=== PATIENT | male | born 1980 | race Caucasian/White ===

== ENCOUNTER 2023-05-03 09:53 | Emergency (ER) | payer BC, SELFPAY ==
--- NOTE | ~2023-05-03 | XR_ITS ---
EXAMINATION: XR chest 2V DATE: 05/03/2023 10:22 INDICATION: Cough TECHNIQUE: PA and lateral views of the chest are obtained. COMPARISON: None available FINDINGS: The lungs are free of acute opacities. No pleural effusion or pneumothorax. The cardiomedia stinal silhouette is normal. The visualized bones and soft tissues are unremarkable. IMPRESSION: 1. No acute cardiopulmonary abnormality. Reviewed, dictated and finalized at location B. OR NET SOFTWARE DEVELOPER
[2023-05-03 10:02] VITALS: BP 125/88; PULSE 101; RESP 20; TEMP 36.9; O2SAT 95
--- NOTE | 2023-05-03 10:08 | ED.URI ---
HPI - URI/Sore Throat General Chief Complaint: Upper Respiratory Infection Stated Complaint: Chest Congestion/Cough/Rib Pain Source: patient and RN notes reviewed Mode of arrival: ambulatory Limitations: no limitations History of Present Illness HPI Narrative: 43 y/o male presented for c/o nonproductive cough x2 days.Reports associated bilateral rib pain with coughing, headache, chills, and sore throat. Taking mucinex. Denies cp, palpitations, sob, wheezing, n/v/d. smokes 2ppd. MD elicited complaint: cough Related Data Allergies Allergy/AdvReac Type Severity Reaction Status Date / Time No Known Allergies Allergy Verified 05/03/23 10:09 Review of Systems Review of Systems: CONSTITUTIONAL: Endorses malaise, chills, sweats, fever EYES: Denies visual changes, redness, or discharge ENT: Reports rhinorrhea, congestion, sore throat CARDIOVASCULAR: Denies chest pain, palpitations, edema RESPIRATORY: Reports cough, Denies dyspnea or wheezing GASTROINTESTINAL: Denies abdominal pain, nausea, vomiting, diarrhea SKIN: Denies rash or itching MUSCULOSKELETAL: Endorses myalgia [facility] Social History Social History (Updated 05/03/23 @ 10:17 by Nina Poe, CHEMICAL ENGINEERING PROFESSOR) Smoking packs per day: 2 Smoking cigarettes per day: 40.0 Smoking status: Current every day smoker Tobacco type: cigarettes Exam Narrative: GENERAL: mildly Ill-appearing, nontoxic no acute distress. EYES: PERRLA, conjunctivae clear ENT: Mucous membranes moist. TM pearly aguirre with dull light reflex bilaterally; no tragal tenderness. Oropharynx erythematous without lesions or exudate, no drooling, no hoarseness, no trismus, uvula midline. No tripod positioning, muffled voice, soft palate or pharyngeal wall bulging CHEST: Clear to auscultation, breath sounds equal. No wheezing, rhonchi, rales, or stridor. No respiratory distress, speaks in full sentences. 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 HEART: Regular rate and rhythm. No murmur heard. SKIN: Warm, dry, no rash. NEURO: Alert and oriented x3. PSYCH: Normal mood and affect Course Course Emergency Course: Patient is aware of diagnosis, understands and agrees to treatment plan. Anticipatory guidance given. Patient agrees to follow-up as directed and is aware of reasons to seek care at the emergency department. Portions of this record may have been created with voice recognition software Level of Care: Express Care Visit Vital Signs Vital signs: Vital Signs Temperature 98.4 F 05/03/23 10:02 Pulse Rate 101 H 05/03/23 10:02 Respiratory Rate 20 05/03/23 10:02 Blood Pressure 125/88 05/03/23 10:02 Pulse Oximetry 95 05/03/23 10:02 Oxygen Delivery Room Air 05/03/23 10:02 Temperature 98.4 F 05/03/23 10:02 Pulse Rate 101 H 05/03/23 10:02 Respiratory Rate 20 05/03/23 10:02 Blood Pressure 125/88 05/03/23 10:02 Pulse Oximetry 95 05/03/23 10:02 Oxygen Delivery Room Air 05/03/23 10:02 reviewed MDM - URI/Sore Throat MDM Narrative Medical decision making narrative: Results of chest x-ray reviewed with patient. Results of neg COVID and flu test reviewed with patient. Discussed physical exam findings. Reviewed Rx's and if symptoms are due to viral infection it will not be treated with abx. He has a at home. Advised supportive measures and signs/symptoms to go to the ER. Pt is appropriate for outpt treatment and f/u. Differential Diagnosis Differential diagnosis: Likely upper respiratory infection, sinusitis and viral infection Lab Data Labs: Lab Results 05/03/23 Range/Units 10:13 POC SARS CoV-2 Ag Negative (Negative) Influenza A Screen Negative Reference Range: Negative Influenza B Screen Negative Reference Range: Negative Discharge Plan Discharge Clinical Impression: Bronchitis Patient Disposition: Home, Se
== END 2023-05-03 10:45 | disposition home or self-care (01) ==
PROVIDERS: Emergency Provider Nurse Practitioner Family
DX: J40 Bronchitis, not specified as acute or chronic (principal); Z20.822 Contact with and (suspected) exposure to COVID-19; F17.210 Nicotine dependence, cigarettes, uncomplicated
CPT/HCPCS: 71046; 87426; 87804; 99213; G0463

== ENCOUNTER 2024-04-17 10:06 | Emergency (ER) | payer BC, SELFPAY ==
[2024-04-17 10:17] VITALS: BP 155/104; PULSE 83; RESP 20; TEMP 36.4; O2SAT 96
[2024-04-17 10:48] LABS: EDCOVIDSCREEN Positive (Negative); EDINFLUASCREEN Negative (Negative); EDINFLUBSCREEN Negative (Negative)
--- NOTE | 2024-04-17 10:56 | ED_ITS ---
HPI - URI/Sore Throat General Chief Complaint: Upper Respiratory Infection Stated Complaint: Dizziness/Cough/Body Aches Time Seen by Provider: 04/17/24 10:56 Source: patient Mode of arrival: ambulatory Limitations: no limitations History of Present Illness HPI Narrative: 44-year-old male presents with complaint of cough, chest congestion cough fatigue for 3 days. Afebrile. Denies nausea vomiting diarrhea. No chest pain or shortness of breath. All systems reviewed and negative except as noted above. Related Data Home Medications ?Medication ?Instructions ?Recorded ?Confirmed ?Last Taken ?Type No Home Medications 04/17/24 Unknown History Allergies Allergy/AdvReac Type Severity Reaction Status Date / Time No Known Allergies Allergy Verified 04/17/24 10:33 Review of Systems Review of Systems: CONSTITUTIONAL: Denies fever, chills, or sweats. Reports fatigue. EYES: Denies visual changes, redness, or discharge. ENT: Reports rhinorrhea, congestion. Denies sore throat, or otalgia. CARDIOVASCULAR: Denies chest pain, palpitations, or edema. RESPIRATORY: reports cough . Denies dyspnea. GASTROINTESTINAL: Denies abdominal pain, nausea, vomiting, or diarrhea. GENITOURINARY: Denies dysuria or hematuria. SKIN: Denies rash or itching. MUSCULOSKELETAL: Denies back pain, joint pain, or myalgia. NEUROLOGIC: Denies headache, numbness, or weakness. PSYCHIATRIC: Denies anxiety or depression. All other systems reviewed are negative, except as documented in HPI. PMFSH Social History Social History (Updated 05/03/23 @ 10:17 by Nina Poe, MARSHMALLOW MACHINE OPERATOR) Smoking packs per day: 2 Smoking cigarettes per day: 40.0 Smoking status: Current every day smoker Tobacco type: cigarettes Comments At time of signature, agree with nursing past medical, surgical, social and family history. There is no relevant family history pertinent to the presenting complaint. Exam Narrative: GENERAL: This is a well-nourished, well-developed patient, ill-appearing but no acute distress HEAD: normocephalic, atraumatic. EYES: PERRL. Sclera clear/white. Vision is grossly intact. EARS: External ears normal, auditory canals clear and without drainage, TMs normal without perforation. Hearing grossly intact. NOSE: External nose normal with no obvious nasal discharge, nares without redness, no rhinorrhea. THROAT: Mucous membranes moist, posterior pharynx clear. NECK: Neck supple, non-tender without lymphadenopathy, masses or thyromegaly. CARDIOVASCULAR: Regular rate and rhythm without murmurs, gallops, or rubs. RESPIRATORY: Clear to auscultation. Breath sounds equal bilaterally. No wheezes, rales, or rhonchi. SKIN: warm, Dry, intact with no suspicious lesions or rash, good texture and turgor. NEURO: awake, alert, and oriented to person, place and time. There were no obvious focal neurologic abnormalities. EXTREMITIES: No joint tenderness, effusion, or edema noted. Course Course Level of Care: Express Care Visit Vital Signs Vital signs: Vital Signs Temperature 36.4 C L 04/17/24 10:17 Pulse Rate 83 04/17/24 10:17 Respiratory Rate 20 04/17/24 10:17 Blood Pressure 155/104 H 04/17/24 10:17 Pulse Oximetry 96 04/17/24 10:17 Oxygen Delivery Room Air 04/17/24 10:17 Temperature 36.4 C L 04/17/24 10:17 Pulse Rate 83 04/17/24 10:17 Respiratory Rate 20 04/17/24 10:17 Blood Pressure 155/104 H 04/17/24 10:17 Pulse Oximetry 96 04/17/24 10:17 Oxygen Delivery Room Air 04/17/24 10:17 reviewed MDM - URI/Sore Throat MDM Narrative Medical decision making narrative: patient positive for COVID-19. Lungs clear to auscultation. Patient alert, nontoxic. No respiratory distress. Recommend treat symptoms with nnrm-hej-[id number] medications. Patient is aware of diagnosis, understands and agrees to treatment plan. Anticipatory guidance given. Patient agrees to follow-up as directed and is aware of reasons to seek care at the emergency department. Portions of this record may have been created with voice recognition software Differential Diagnosis Differential diagnosis: Likely upper respiratory infection, sinusitis, viral infection, bronchitis, influenza and other ( COVID-19, pneumonia) Lab Data Labs: Lab Results 04/17/24 Range/Units 10:47 POC Influenza A Ag Negative (Negative) POC Influenza B Ag Negative (Negative) POC SARS CoV-2 Ag Positive (Negative) Discharge Plan Discharge Clinical Impression: COVID-19 Patient Disposition: Home, Self-Care Condition: Stable Instructions: COVID-19 (Coronavirus Disease 2019) (ED) Additional Instructions: you were positive for COVID today. COVID is a virus and symptoms may last 10-14 days. Taking wxee-qsc-mmozmim medication to treat her symptoms such as DayQuil NyQuil cold and flu. Take ibuprofen every 6-8 hours as needed for pain and fever. Drink at least 64 oz of water a day. Follow-up with your primary care physician if symptoms are not improving. Patient Language: Senegalese Prescriptions: No Action No Home Medications Follow-up/Referrals: UNKNOWN,DOCTOR [Primary Care Provider] - Stand Alone Forms: Work/School Release IP Time of Disposition: 11:05
--- OUTSIDE RECORDS SUMMARY | 2024-04-17 10:58 | XMS_ITS | Referral Summary ---
Author Organization [facility] [address] l[address] Address [address] [place] [address] Care Team Providers Care Actor Understudy Name Role Phone JamisonRonmagnus LOVE Primary Care Provider [phone] Allergies No known active allergies Medications No known medications Active Problems Problem Noted Date Diagnosed Date Cigarette nicotine dependence without complicati on 06/29/2023 Assessment & Plan (06/29/2023 5:02 PM CDT): Smokes 1.5-2 ppd Does not wish to stop smoking Immunizations Name Administration Dates Next Due Influenza, Unspecified 06/14/2023(Deferr ed: Patient Refused),01/14/2023(Deferred: Patient Refused),01/14/2023(Deferred: Patient Refused),12/13/2021(Deferred: Patient Refused),12/13/2021(Deferred: Patient Refused) Pfizer SARS-CoV-2 Monovalent Vaccination (12+ Yrs) PURPLE 06/30/2020,06/09/2020 Tdap 06/29/2023,05/06/2011 Social History Tobacco Use Types Packs/Day Years Used Date Smoking Tobacco: Every Day Cigarettes 1.5 15 Smokeless Tobacco: Never Tobacco Cessation:Ready to Q uit: No; Counseling Given: Not Answered AUDIT-C Answer Date Recorded Q1: How often do you have a drink containing alcohol? 4 or more times a week 06/29/2023 Q2: How many drinks containi ng alcohol do you have on a typical day when you are drinking? 5 or 6 Q3: How often do you have si x or more drinks on one occasion? 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 Gender Identity Not on file Sexual Orientation Not on file Last Filed Vital Signs Vital Sign Reading Time Taken Comments Blood Pressure 114/74 06/29/2023 4:44 PM CDT Pulse 74 06/29/2023 4:44 PM CDT Temperature 36.7 ??C (98 ??F) 06/29/2023 4:44 PM CDT Respiratory Rate 16 06/29/2023 4:44 PM CDT Oxygen Saturation 97% 06/29/2023 4:44 PM CDT Inhaled Oxygen Concentration - - Weight 91.2 kg (201 lb) 06/29/2023 4:44 PM CDT Height 172.7 cm (5' 8 ) 06/29/2023 4:44 PM CDT Body Mass Index 30.56 06/29/2023 4:44 PM CDT Plan of Treatment Not on file Procedures Procedure Name Priority Date/Time Associated Diagnosis Comments HEPATITIS C ANTIBODY Routine 07/10/2023 7:51 AM CDT Need for hepatitis C screening test from Last 3 Months or Most Recently Relevant to Health Maintenance Results * Hepatitis C antibody Blood (07/10/2023 7:51 AM CDT) Hep C Ab Nonreactive Nonreactive Comment: Interpretive Data Nonreactive: Antibodies to HCV not detected. Does NOT exclude the possibility of recent exposure to HCV. Equivocal: Equivocal for HCV antibodies. Supplemental molecular testing will be automatically performed to determine infection status in accordance with current CDC screening recommendations. ?? Reactive: Positive for HCV antibodies. ??This may represent current or past HCV infection. Supplemental molecular testing will be automatically performed to determine ??current infection status in accordance with current CDC screening recommendations. Interpretive data was last revised on 2019. Testing performed by: [facility], [address] [place] [address], [place]., [address] Blood 07/10/2023 7:51 AM CDT 07/10/2023 1:32 PM CDT us Mackenzie Swift NP LAB MICROBIOLOGY - GENERAL ORDER KATHLEEN Edited Result - Final [facility] ([place]) [address] [facility] [place] [address] from Last 3 Months or Most Recently Relevant to Health Maintenance Insurance ANTHEM ACCESS CHOICE ANTHEM ACCESS CHOICE Care Teams Actor Understudy Relationship Specialty Start Date End Date Mackenzie Swift NP PCP - General Family Medicine 06/29/23
--- OUTSIDE RECORDS SUMMARY | 2024-04-17 10:58 | XMS_ITS | Clinical Summary ---
Author Organization [facility] [address] [facility] [address] [facility] l[address] Address [address] [place] [address] Care Team Providers Care Filling Mixer Name Role Phone JamisonRonmagnus LOVE Primary Care Provider [phone] Allergies No known active allergies Medications No [...] Vaccination (12+ Yrs) PURPLE 06/30/2020,06/09/2020 Tdap 06/29/2023,05/06/2011 Surgical History Surgery Date Site/Laterality Comments ABDOMINAL SURGERY 1978 Family History Medical History Relation Name Comments Drug abuse Mother Leela Diabetes Sister Savi Relation Name Status Comments Mother Leela Sister Savi Social History Tobacco Use Types Packs/Day Years [...] on file Legal 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:[address] ENGINEER Gender Identity Not on file Sexual Orientation Not on file Obstetrics History Last Filed Vital Signs Vital Sign Reading [...] 06/29/2023 4:44 PM CDT Plan of Treatment Health Maintenance Due Date Last Done Comments Colon Cancer Screening-Colonoscopy 1979 Hepatitis B Screening 1997 Regular Well Visit/Exam 18-64 1997 Covid-19 Vaccine ( - 2023-2 5 season) 2023 06/30/2020, 06/09/2020 Influenza Vaccine (#1) 2023 Pneumococcal vaccine <65 (1 of 2 - PCV) 06/13/2024 Postponed from 01/18 (Patient declined, but will receive in the future) Depression Screening 06/28/2024 06/29/2023 DTaP/Tdap/Td Vaccine (3 - Td or Tdap) 06/28/2033 06/29/2023, 05/06/2011 Hepatitis C Screening Completed 07/10/2023 HPV Vaccines Aged Out No longer eligi ble based on patient's age to complete this topic Procedures Procedure Name Priority Date/Time Associated Diagnosis [...] last revised on 2019. Testing performed by: [facility], [address] [place] [address]., [id number] Blood 07/10/2023 7:51 AM CDT 07/10/2023 1:32 PM CDT us Mackenzie Swift NP LAB MICROBIOLOGY - GENERAL ORDER KATHLEEN Edited Result - Final [facility] ([place]) [address] [facility] Department [place] [address] from Last 3 Months or Most Recently Relevant to Health Maintenance Insurance [place] [facility] ACCESS CHOICE [facility] ACCESS CHOICE Care Teams Filling Mixer Relationship Specialty Start Date End Date Mackenzie Swift NP PCP - General Family Medicine 06/29/23
== END 2024-04-17 11:19 | disposition home or self-care (01) ==
PROVIDERS: Emergency Provider Nurse Practitioner Family
DX: U07.1 COVID-19 (principal); F17.210 Nicotine dependence, cigarettes, uncomplicated
CPT/HCPCS: 87426; 87804; 99212; G0463